=== PATIENT | male | born 1995 | race Caucasian/White ===

== ENCOUNTER 2021-06-08 12:44 | Emergency (ER) | payer OTHER ==
[~2021-06-08] VITALS: Ht 172.7 cm; Wt 99.0 kg
[2021-06-08] MEDS ORDERED: LEVETIRACETAM 500MG PREMIX 100 ML IV ONE (13:15)
[2021-06-08] MEDS ORDERED: KEPP500 MT (13:27)
[2021-06-08 13:30] VITALS: BP 138/82
[2021-06-08] MEDS ORDERED: LEVETIRACETAM 500MG TABLET PO ONE (13:30)
== END 2021-06-08 14:34 | disposition left against medical advice (07) ==
LOC: ER 13:02
DX: R56.9 Unspecified convulsions (principal)
CPT/HCPCS: 99283

== ENCOUNTER 2025-10-14 20:34 | Emergency (ER) | payer MEDICAID, OTHER ==
[~2025-10-14] VITALS: Ht 170.2 cm; Wt 73.0 kg
[~2025-10-14 20:34] MED LIST: KEPP500 MT
[2025-10-14 20:38] VITALS: BP 114/68; PULSE 77; RESP 14; TEMP 98.5; O2SAT 98
== END 2025-10-14 20:55 | disposition home or self-care (01) ==
LOC: ER 20:34
DX: R56.9 Unspecified convulsions (principal); Z65.3 Problems related to other legal circumstances
CPT/HCPCS: 99283